=== PATIENT | female | born 1950 | race Caucasian/White ===

== ENCOUNTER 2021-10-20 17:41 | Emergency (ER) | payer MEDICARE, OTHER ==
[2021-10-20] MEDS ORDERED: Lidocaine 1% 20 ML MDV ONE (18:00)
[2021-10-20] MEDS ORDERED: Morphine 4 MG/ML VIAL ONE (18:16)
[2021-10-20] MEDS ORDERED: Ondansetron ODT 4 MG TAB ONE (18:17)
[2021-10-20] MEDS ORDERED: Boostrix 0.5 ML (Tdap) VIAL ONE (18:17)
== END 2021-10-20 19:21 | disposition home or self-care (01) ==
LOC: NAV ERS 17:41
DX: S52.591A Other fractures of lower end of right radius, initial encounter for closed fracture (principal); S52.611A Displaced fracture of right ulna styloid process, initial encounter for closed fracture; E78.5 Hyperlipidemia, unspecified; E78.00 Pure hypercholesterolemia, unspecified; W19.XXXA Unspecified fall, initial encounter; Z23 Encounter for immunization; Z85.3 Personal history of malignant neoplasm of breast; Z79.899 Other long term (current) drug therapy
CPT/HCPCS: 25605; 90471; 90715; 96372; J2270; Q0162